=== PATIENT | female | born 2000 | race Two or more races ===

== ENCOUNTER → 2025-10-07 | Outpatient (CLI) | payer BC, MEDICAID, SELFPAY ==
--- NOTE | 2025-10-07 15:00 | XR_ITS ---
Examination: Breast ultrasound, unilateral, left Date and time of exam: October 07, 2025, 1534 hours INDICATIONS: Left breast pain burning sensation 2 months Technique: Real-time rodriguez scale ultrasonographic imaging performed left breast including all 4 quadrants as well as nipple retroareolar and axillary region. Findings: No cystic or solid mass 24 mm left axillary lymph node IMPRESSION: BI-RADS Category 2: Benign findings
== END | disposition home or self-care (01) ==
PROVIDERS: PCP Physician Assistant; Referring Provider Physician Assistant; Visit Provider Physician Assistant
DX: N64.4 Mastodynia (principal)
CPT/HCPCS: 76641